=== PATIENT | female | born 1960 | race Caucasian/White ===

== ENCOUNTER → 2019-03-07 | Outpatient (CLI) | payer MEDICARE, MEDICAID ==
--- NOTE | 2019-03-07 10:04 | RADIOLOGY REPORT (SQ) ---
EXAM DESCRIPTION: CT CHEST WITHOUT COMPLETED DATE/TIME: 03/07/2019 8:52 am REASON FOR STUDY: EMPHYSEMA (J43.9) J43.9 EMPHYSEMA, UNSPECIFIED COMPARISON: CT abdomen pelvis 10/16/2007, 12/30/2006 Chest films 07/23/2009, 11/07/2014 TECHNIQUE: CT scan performed of the chest without intravenous contrast. Images reviewed with lung, soft tissue and bone windows. Reconstructed coronal and sagittal MPR images reviewed. All images st ored on PACS. All CT scanners at this facility use dose modulation, iterative reconstruction, and/or weight based d osing when appropriate to reduce radiation dose to as low as reasonably achievable (ALARA). [facility]: Dose Right [facility]: CareDose [facility]: Dose Right [facility]: Teradose 4D [facility]: [employer] RADIATION DOSE: CT Rad equipment meets quality standard of care and radiation dose reduction techniq ues were employed. CTDIvol: 15.2 mGy. DLP: 643 mGy-cm. mGy. LIMITATIONS: No technical limitations. FINDINGS: LUNGS AND PLEURA: There is chronic volume loss and collapse of the right middle lobe. Rig ht middle lobe is completely atelectatic on coronal images 30 through 59, and axial images 54 through 64. There is volume loss and consolidation in the medial segment right upper lobe on axial image 48. Bandlike atelectasis is present in the medial aspect left upper lobe axial image 41. No worrisome pulmonary nodules. No pleural effusion. No pneumothorax. No focal infiltrates. No en larged airspaces/bulla or blebs. HILAR AND MEDIASTINAL STRUCTURES: No identified masses or abnormal nodes. No obvious aneurysm. HEART AND VASCULAR STRUCTURES: No aneurysm. No pericardial effusion. Very heavily calcified coronar y arteries UPPER ABDOMEN: 1.5 cm right adrenal nodule. 3 x 2.5 cm cyst left mid pole kidney for which follow-up ultrasound is recommended THYROID AND OTHER SOFT TISSUES: No masses. No adenopathy. BONES: No significant finding. HARDWARE: None in the chest. OTHER: No other significant findings. IMPRESSION: Chronic volume loss/collapse right middle lobe. Bandlike atelectasis lingula 3 x 2.5 cm left mid pole probable renal cyst for which dedicated renal ultrasound is recommended for followup TECHNICAL DOCUMENTATION: JOB ID: [id number] Quality ID # [id number]: Final reports with documentation of one or more dose reduction techniques (e.g., Au tomated exposure control, adjustment of the mA and/or kV according to patient size, use of iterative reconstruction technique) 2010 [employer]- All Rights Reserved Reading location - IP/workstation name: [email or web address]
== END ==
LOC: RAD 08:03
PROVIDERS: ATTEND Registered Nurse
DX: J43.9 Emphysema, unspecified (principal)
CPT/HCPCS: 71250